=== PATIENT | male | born 1985 | race Caucasian/White ===

== ENCOUNTER 2019-06-18 15:04 | Emergency (ER) | payer MEDICAID ==
[~2019-06-18] VITALS: Ht 193 cm; Wt 140.6 kg
[2019-06-18 17:50] LABS: Urine Bacteria NONE SEEN /hpf (None Seen); Urine Blood Negative /uL (Negative); Urine Mucus FEW (None Seen); Urine Specific Gravity 1.005 (1.001-1.035); Urine WBC 1 /hpf (0 - 3)
[2019-06-18 18:23] VITALS: BP 140/84
== END 2019-06-18 18:25 | disposition home or self-care (01) ==
LOC: ER 15:04
DX: R30.0 Dysuria (principal); R11.2 Nausea with vomiting, unspecified; M54.5 Low back pain; R31.9 Hematuria, unspecified; R53.83 Other fatigue
CPT/HCPCS: 81001

== ENCOUNTER 2019-07-02 02:21 | Emergency (ER) | payer MEDICAID ==
[~2019-07-02] VITALS: Ht 193 cm; Wt 140.6 kg
[2019-07-02 03:58] LABS: Basophils # (auto) 0.1 uL; Basophils % (auto) 0.9 % (0.0-2.0); Eosinophils # (auto) 0.2 uL; Hematocrit 43.5 % (41.0-53.0); Hemoglobin 15.1 g/dL (13.5-17.5); Lymphocytes # (auto) 1.7 uL; Lymphocytes % (auto) 28.4 % (10.0-50.0); Mean Corpuscular Hemoglobin 32.4 pg (28.0-32.0); Mean Corpuscular Hgb Conc. 34.6 g/dL (32.0-36.0); Mean Corpuscular Volume 93.4 fL (80.0-100.0); Monocytes # (auto) 0.6 uL; Neutrophils # (auto) 3.3 uL; Neutrophils % (auto) 56.7 % (37.0-80.0); Platelet Count (auto) 250 10^3/uL (140-450); Red Blood Cells 4.66 10^6/uL (4.5-5.90); Red Cell Distribution Width 14.2 % (11.8-14.3); White Blood Cell 5.9 10^3/uL (4.4-10.8)
[2019-07-02 04:14] LABS: Albumin 4.3 g/dL (3.4-5.0); Calcium 8.6 mg/dL (8.5-10.1); Magnesium 2.4 mg/dL (1.6-2.6); Potassium 3.7 mmol/L (3.5-5.1)
[2019-07-02 04:15] LABS: INR 1.05 (0.9-1.15); Partial Thromboplastin Time 28.5 sec (23.64-32.05)
[2019-07-02 04:18] LABS: BUN/Creatinine Ratio 14.7; Bilirubin, Total 0.4 mg/dL (0.2-1.0); Total Protein 8.1 g/dL (6.4-8.2)
[2019-07-02 06:00] VITALS: BP 127/81
== END 2019-07-02 06:26 | disposition home or self-care (01) ==
LOC: ER 02:21
DX: R33.9 Retention of urine, unspecified (principal); F41.1 Generalized anxiety disorder; F43.0 Acute stress reaction
CPT/HCPCS: 36415; 74176; 80053; 82150; 83690; 83735; 84154; 85025; 85610; 85730